=== PATIENT | male | born 1965 | race Two or more races ===

== ENCOUNTER 2020-12-14 11:44 | Emergency (ER) | payer OTHER ==
[~2020-12-14] VITALS: Ht 182.9 cm; Wt 93.4 kg
[~2020-12-14 11:44] MED LIST: CLONAZEPAM1 MG PO
[2020-12-14] MEDS ORDERED: CLONAZEPAM0.5 MG PO (12:21)
[2020-12-14] MEDS ORDERED: COZAAR50 MG PO (12:21)
== END 2020-12-14 13:53 | disposition home or self-care (01) ==
LOC: ER 11:44
DX: L72.0 Epidermal cyst (principal)